=== PATIENT | female | born 1955 | race Caucasian/White ===

== ENCOUNTER 2017-08-19 22:46 | Emergency (ER) | payer MEDICARE, MEDICAID ==
--- NOTE | 2017-08-19 23:07 | ER Document Report ---
ED General - General Chief Complaint: Chest Pain > 30 Stated Complaint: CHEST,ABDOMINAL PAIN Time Seen by Provider: 08/19/17 23:05 Notes: Patient is a 62-year-old female presents with complaint of upper abdominal pain and burning. Said rates to her back. She then has some pain goes into her chest. She has had this pain many times in the past. She has had for HIDA scans which have all been negative. She does admit to drinking several shots of alcohol yesterday. Pain is been there for 1-2 days. No vomiting. Some nausea. She says she seemed a small amount of blood in her stool which is not abnormal for her. No history of coronary disease. She is a former smoker but quit 14 years ago. She has a history of appendectomy. She has had endoscopies in the past which just show hiatal hernia. Her says that she said this happened to her many times in the past. The patient says that this is however different and that it is worse; however, she then says that Valium helps this pain typically. TRAVEL OUTSIDE OF THE [place] IN LAST 30 DAYS: No - Related Data Allergies/Adverse Reactions: aspirin [Aspirin] Allergy (Verified 02/25/14 11:53) epinephrine [Epinephrine] Allergy (Verified 02/25/14 11:53) ibuprofen [Ibuprofen] Allergy (Verified 02/25/14 11:53) Past Medical History - Social History Smoking Status: Former Smoker Frequency of alcohol use: Occasional Drug Abuse: None Family History: Reviewed & Not Pertinent Pulmonary Medical History: Reports: Hx Asthma Endocrine Medical History: Reports: Hx Diabetes Mellitus Type 2 Malignancy Medical History: Reports: Hx Breast Cancer GI Medical History: Reports: Hx Gastroesophageal Reflux Disease Musculoskeltal Medical History: Reports Hx Arthritis Past Surgical History: Reports: Hx Abdominal Surgery - colonectomy, Hx Appendectomy, Hx Mastectomy - patrial, Hx Orthopedic Surgery - R knee; R tib; R wrist; jaw - Immunizations Hx Diphtheria, Pertussis, Tetanus Vaccination: Yes Review of Systems - Review of Systems Notes: My Normal Review Basic REVIEW OF SYSTEMS: CONSTITUTIONAL : Denies fever, chills, or sweats. Denies recent illness. EENT: Denies eye, ear, throat, or mouth pain or symptoms. Denies nasal or sinus congestion. CARDIOVASCULAR: Lower chest pressure. RESPIRATORY: Denies cough, cold, or chest congestion. Denies shortness of breath, difficulty breathing, or wheezing. GASTROINTESTINAL: Abdominal pain. Some nausea. No vomiting. GENITOURINARY: Denies difficulty urinating, painful urination, burning, frequency, or blood in urine. MUSCULOSKELETAL: Some pain radiating to back from abdomen. SKIN: Denies rash or skin lesions. NEUROLOGICAL: Denies altered mental status or loss of consciousness. Denies headache. Denies weakness or paralysis or loss of use of either side. Denies problems with gait or speech. Denies sensory or motor loss. ALL OTHER SYSTEMS REVIEWED AND NEGATIVE. Physical Exam - Vital signs Vitals: Temp Pulse Resp BP Pulse Ox 97.5 F 90 20 143/53 H 94 08/19/17 22:54 08/19/17 22:54 08/19/17 22:54 08/19/17 22:54 08/19/17 22:54 - Notes Notes: General Appearance: Well nourished, alert, cooperative, no acute distress, or obvious discomfort. Patient is very anxious on exam. Vitals: reviewed, See vital signs table. Head: no swelling or tenderness to the head Eyes: PERRL, EOMI, Conjuctiva clear Mouth: No decreasd moisture Lungs: No wheezing, No rales, No rhonci, No accessory muscle use, good air exchange bilaterally. Heart: Normal rate, Regular rythm, No murmur, no rub Abdomen: Normal BS, soft, No rigidity, moderate upper abdominal tenderness to palpation. Lower abdomen is completely nontender., No guarding, no rebound, no abdominal masses, no organomegaly Extremities: strength 5/5 in all extremities, good pulses in all extremities, no swelling or tenderness in the extremities, no edema. Skin: warm, dry, appropriate color, no rash Neuro: speech clear, oriented x 3, normal affect, responds appropriately to questions. Course - Re-evaluation Re-evalutation: 08/19/17 23:30 Patient initially said the Valium helps this pain when she has it. I therefore ordered Valium. Patient now requests to be able take her on p.o. Valium from home that she brought with her. I will cancel the IV Valium and let her take her oral Valium. 08/20/17 02:03 Patient is now resting comfortably. She looks well. Will let her continue to rest and reassess her later. I did talk to the again. He does again state that this pain has happened many times in the past. He says it is always in the same location and radiates to her back. She has a history of chronic back issues as well that which he feels also plays a role. She has had multiple HIDA scans however has been still concerned that maybe her gallbladder does play a role even though all her gallbladder workup and multiple gallbladder workups have been negative. Laboratory evaluation in regards to her liver enzymes and white blood cell count are normal. 08/20/17 05:22 Patient continues to feel much improved. She will be discharged home. I do not know the exact cause of her current pain. Seems to be a combination of some chronic abdominal back pain in conjunction with stress and anxiety. says she has been like this many times in the past. It sounds like she has had very extensive workups including HIDA scans and testing of her gallbladder which have all come back negative. She is completely pain-free at this time. Her laboratory evaluation is unremarkable. I do not suspect coronary disease. Her pain is very reproducible to palpation in her abdomen. EKG and cardiac enzymes are negative. I do not suspect aortic dissection and that she has had this type of pain several times in the past with negative workups, she has no hyper tension, she is not tachycardic, pulses are equal in all 4 extremities, and her pain is completely resolved. her abdomen is now pain- free to palpation. Her laboratory evaluation is unremarkable. I feel she is safe to be discharged home. I informed her and her that she is to follow-up with her doctor this week for reevaluation. I encouraged him return to ER if she has recurrent pain, fevers, vomiting, chest pain, or she feels unwell. Patient and agree with plan and she will be discharged home. Dictation of this chart was performed using voice recognition software; therefore, there may be some unintended grammatical errors. 08/20/17 05:27 08/20/17 05:27 - Vital Signs Vital signs: Temp Pulse Resp BP Pulse Ox 97.5 F 90 28 H 120/61 97 08/19/17 22:54 08/19/17 22:54 08/20/17 03:01 08/20/17 03:01 08/20/17 03:01 - Laboratory Result Diagrams: 08/19/17 23:45 08/19/17 23:45 Laboratory results interpreted by me: 08/19/17 08/19/17 23:45 23:45 RDW 14.3 H Carbon Dioxide 31 H Glucose 140 H - EKG Interpretation by Me Additional EKG results interpreted by me: 08/19/17 23:05 EKG is reviewed and interpreted by me. EKG shows normal sinus rhythm with a rate of [address] segment elevation or depression that is new in comparison to her previous EKG from summer. Patient does have a right bundle branch block that she is consistent with his old EKG. Discharge - Discharge Clinical Impression: Abdominal pain Qualifiers: Abdominal location: upper abdomen, unspecified Qualified Code(s): R10.10 - Upper abdominal pain, unspecified Back pain Qualifiers: Back pain location: thoracic back pain Chronicity: chronic Back pain laterality : right Qualified Code(s): M54.6 - Pain in thoracic spine Condition: Good Disposition: HOME, SELF-CARE Additional Instructions: Please follow up with your doctor this week for reevaluation. please return to the ER if you have worsening, recurrent pain, fevers, vomiting, or feel unwell. Please avoid spicy foods, fatty foods and fried foods. Please avoid alcohol. Please avoid heavy lifting. Forms: Return to Work Referrals: JUANCARLOS SMITH MD [Primary Care Provider] - 08/21/17
[2017-08-19] MEDS ORDERED: DIAZEPAM INJ 10 MG/2 ML DISP.SYRIN IV ONE (23:14)
[2017-08-19 23:57] LABS: ABSOLUTE BASOPHILS # (AUTO) 0.1 10^3/uL (0.0-0.2); ABSOLUTE EOSINOPHILS # (AUTO) 0.2 10^3/uL (0.0-0.6); ABSOLUTE LYMPHOCYTES (AUTO) 2.1 10^3/uL (0.5-4.7); ABSOLUTE MONOCYTES (AUTO) 0.5 10^3/uL (0.1-1.4); ABSOLUTE NEUT (AUTO) 3.6 10^3/uL (1.7-8.2); BASOPHILS % (AUTO) 0.9 % (0-2); EOSINOPHILS % (AUTO) 3.1 % (0-6); HEMATOCRIT 43.8 % (36.0-47.0); HEMOGLOBIN 14.7 g/dL (12.0-15.5); LYMPHOCYTES % (AUTO) 32.9 % (13-45); MEAN CORPUSCULAR HEMOGLOBIN 31.3 pg (27.0-33.4); MEAN CORPUSCULAR HGB CONC 33.6 g/dL (32.0-36.0); MEAN CORPUSCULAR VOLUME 93 fl (80-97); MONOCYTES % (AUTO) 7.9 % (3-13); PLATELET COUNT 178 10^3/uL (150-450); RED BLOOD COUNT 4.71 10^6/uL (3.72-5.28); RED CELL DISTRIBUTION WIDTH 14.3 % (11.5-14.0); SEGMENTED NEUTROPHILS % (AUTO) 55.2 % (42-78); TOTAL CELLS COUNTED % (AUTO) 100 %; WHITE BLOOD COUNT 6.4 10^3/uL (4.0-10.5)
--- NOTE | 2017-08-20 00:01 | RADIOLOGY REPORT (SQ) ---
EXAM DESCRIPTION: CHEST SINGLE VIEW COMPLETED DATE/TIME: 08/19/2017 11:27 pm REASON FOR STUDY: chest pain, upper abdominal pain COMPARISON: 07/25/2012 EXAM PARAMETERS: NUMBER OF VIEWS: One view. TECHNIQUE: Single frontal radiographic view of the chest acquired. RADIATION DOSE: NA LIMITATIONS: None. FINDINGS: LUNGS AND PLEURA: No acute opacities, masses or pneumothorax. No pleural effusion. MEDIASTINUM AND HILAR STRUCTURES: Stable. HEART AND VASCULAR STRUCTURES: Heart normal in size. Normal vasculature. BONES: No acute findings. HARDWARE: None in the chest. OTHER: No other significant finding. IMPRESSION: NO ACUTE RADIOGRAPHIC FINDING IN THE CHEST. TECHNICAL DOCUMENTATION: JOB ID: [id number] [place]-72 2010 [employer]- All Rights Reserved
[2017-08-20 00:17] LABS: ALANINE AMINOTRANSFERASE 34 U/L (9-52); ALBUMIN 3.7 g/dL (3.5-5.0); ALKALINE PHOSPHATASE 102 U/L (38-126); ANION GAP 9 (5-19); ASPARTATE AMINO TRANSFERASE 19 U/L (14-36); BILIRUBIN,DIRECT 0.2 mg/dL (0.0-0.4); BILIRUBIN,TOTAL 0.4 mg/dL (0.2-1.3); BLOOD UREA NITROGEN 17 mg/dL (7-20); CALCIUM 9.2 mg/dL (8.4-10.2); CARBON DIOXIDE 31 mmol/L (22-30); CHLORIDE 102 mmol/L (98-107); GLUCOSE 140 mg/dL (75-110); LIPASE 102.8 U/L (23-300); POTASSIUM 4.2 mmol/L (3.6-5.0); SODIUM 142.1 mmol/L (137-145); TOTAL PROTEIN 6.8 g/dL (6.3-8.2)
[2017-08-20] MEDS ORDERED: METOCLOPRAMIDE HCL ORAL SOLN 10 MG/10 ML UDCUP PO ONE (00:39)
[2017-08-20] MEDS ORDERED: LIDOCAINE 2% VISCOUS SOLN 20 ML UDCUP PO ONE (00:39)
[2017-08-20] MEDS ORDERED: MAG HYDROX/AL HYDROX/SIMETH SUSP 30 ML UDCUP PO ONE (00:39)
[2017-08-20] MEDS ORDERED: HYDROMORPHONE HCL INJ/PF 2 MG/ML AMPULE IV ONE (00:50)
[2017-08-20] MEDS ORDERED: LORAZEPAM INJ 2 MG/1 ML VIAL IV ONE (00:50)
[2017-08-20 03:16] VITALS: BP 120/61
--- NOTE | 2017-08-21 08:00 | EKG REPORT ---
SEVERITY:- ABNORMAL ECG - SINUS RHYTHM BIATRIAL ABNORMALITIES RIGHT BUNDLE BRANCH BLOCK : Confirmed by: Shelley Barnes MD 21-Aug-2017 07:58:43
== END 2017-08-20 04:03 | disposition home or self-care (01) ==
LOC: ER 22:46
DX: M54.6 Pain in thoracic spine (principal); R10.10 Upper abdominal pain, unspecified; R07.9 Chest pain, unspecified; R11.0 Nausea; Z87.891 Personal history of nicotine dependence; Z79.899 Other long term (current) drug therapy
CPT/HCPCS: 93005; 99284; 96374; 96375; 36415; 83690; 85025; 80053; 84484; 71010; 93010; J3490; A9270; J1170; J2060

== ENCOUNTER 2018-10-28 17:27 | Observation (INO) | payer MEDICAID, MEDICARE, OTHER ==
[~2018-10-28 17:27] MED LIST: REGADENOSON INJ 0.4 MG/5 ML DISP.SYRIN IV ONE
--- NOTE | 2018-10-28 19:18 | EKG REPORT ---
SEVERITY:- ABNORMAL ECG - SINUS RHYTHM LEFT ATRIAL ABNORMALITY RIGHT BUNDLE BRANCH BLOCK : Confirmed by: Shelley Barnes MD 28-Oct-2018 19:16:33
--- NOTE | 2018-10-28 19:23 | ER Document Report ---
ED Medical Screen (RME) - General Chief Complaint: Chest Pain Stated Complaint: CHEST PAIN Time Seen by Provider: 10/28/18 19:15 Primary Care Provider: JUANCARLOS SMITH MD [Primary Care Provider] - Follow up as needed Notes: 63-year-old female patient emergency department chief complaint of chest pain. Chest pain began suddenly on Friday. Seems to be worse with movement and eating. States that she has not had anything to eat since Friday other than some yogurt. Continues to have pain in the chest mostly in the epigastric and right side of the chest. Some mild shortness of breath. I have greeted and performed a rapid initial assessment of this patient. A comprehensive ED assessment and evaluation of the patient, analysis of test results and completion of the medical decision making process will be conducted by additional ED providers. TRAVEL OUTSIDE OF THE [place] IN LAST 30 DAYS: No - Related Data Allergies/Adverse Reactions: aspirin [Aspirin] Allergy (Verified 10/28/18 17:30) epinephrine [Epinephrine] Allergy (Verified 10/28/18 17:30) ibuprofen [Ibuprofen] Allergy (Verified 10/28/18 17:30) Past Medical History Pulmonary Medical History: Reports: Hx Asthma Endocrine Medical History: Reports: Hx Diabetes Mellitus Type 2 Renal/ Medical History: Denies: Hx Peritoneal Dialysis Malignancy Medical History: Reports: Hx Breast Cancer GI Medical History: Reports: Hx Gastroesophageal Reflux Disease Musculoskeltal Medical History: Reports Hx Arthritis Past Surgical History: Reports: Hx Abdominal Surgery - colonectomy, Hx Append ectomy, Hx Mastectomy - patrial, Hx Orthopedic Surgery - R knee; R tib; R wrist; jaw - Immunizations Hx Diphtheria, Pertussis, Tetanus Vaccination: Yes Physical Exam - Vital signs Vitals: Temp Pulse Resp BP Pulse Ox 98.0 F 78 20 167/61 H 95 10/28/18 17:49 10/28/18 17:49 10/28/18 17:49 10/28/18 17:49 10/28/18 17:49 - Notes Notes: Physical exam: Heart with significant systolic murmur 4/6. Lungs reveal crackles bilaterally Course - Vital Signs Vital signs: Temp Pulse Resp BP Pulse Ox 98.0 F 78 20 167/61 H 95 10/28/18 17:49 10/28/18 17:49 10/28/18 17:49 10/28/18 17:49 10/28/18 17:49 - EKG Interpretation by Me EKG shows normal: Sinus rhythm, [place], QRS Complexes, ST-T Waves [place]/QRS: RBBB Doctor's Discharge - Discharge Referrals: JUANCARLOS SMITH MD [Primary Care Provider] - Follow up as needed
--- NOTE | 2018-10-28 20:27 | RADIOLOGY REPORT (SQ) ---
EXAM DESCRIPTION: XR CHEST 2 VIEWS COMPLETED DATE/TME: 10/28/2018 19:21 CLINICAL HISTORY: 63 years, Female, cp COMPARISON: EXAM DESCRIPTION: CLINICAL HISTORY: cp COMPARISON: None. FINDINGS: Two views of the chest are submitted. There is mild bilateral pulmonary edema. Cardiac silhouette appears normal. No focal parenchymal or pleural disease. No acute bony abnormality. There is mild pulmonary vascular engorgement. IMPRESSION: Mild pulmonary edema.
[2018-10-28 21:09] LABS: ABSOLUTE EOSINOPHILS # (AUTO) 0.1 10^3/uL (0.0-0.6); ABSOLUTE LYMPHOCYTES (AUTO) 2.3 10^3/uL (0.5-4.7); ABSOLUTE MONOCYTES (AUTO) 0.6 10^3/uL (0.1-1.4); ABSOLUTE NEUT (AUTO) 3.1 10^3/uL (1.7-8.2); BASOPHILS % (AUTO) 0.8 % (0-2); EOSINOPHILS % (AUTO) 2.4 % (0-6); HEMATOCRIT 44.2 % (36.0-47.0); HEMOGLOBIN 15.2 g/dL (12.0-15.5); MEAN CORPUSCULAR HEMOGLOBIN 32.1 pg (27.0-33.4); MEAN CORPUSCULAR HGB CONC 34.5 g/dL (32.0-36.0); MEAN CORPUSCULAR VOLUME 93 fl (80-97); MONOCYTES % (AUTO) 9.1 % (3-13); PLATELET COUNT 173 10^3/uL (150-450); RED BLOOD COUNT 4.75 10^6/uL (3.72-5.28); RED CELL DISTRIBUTION WIDTH 14.5 % (11.5-14.0); SEGMENTED NEUTROPHILS % (AUTO) 50.7 % (42-78); TOTAL CELLS COUNTED % (AUTO) 100 %; WHITE BLOOD COUNT 6.1 10^3/uL (4.0-10.5)
[2018-10-28 21:32] LABS: ALANINE AMINOTRANSFERASE 37 U/L (9-52); ALBUMIN 4.1 g/dL (3.5-5.0); ALKALINE PHOSPHATASE 85 U/L (38-126); ANION GAP 9 (5-19); ASPARTATE AMINO TRANSFERASE 31 U/L (14-36); BILIRUBIN,DIRECT 0.2 mg/dL (0.0-0.4); BILIRUBIN,TOTAL 1.1 mg/dL (0.2-1.3); BLOOD UREA NITROGEN 14 mg/dL (7-20); CALCIUM 9.8 mg/dL (8.4-10.2); CARBON DIOXIDE 28 mmol/L (22-30); CHLORIDE 103 mmol/L (98-107); CREATINE KINASE 70 U/L (30-135); GLUCOSE 90 mg/dL (75-110); LIPASE 63.1 U/L (23-300); POTASSIUM 4.3 mmol/L (3.6-5.0); TOTAL PROTEIN 6.7 g/dL (6.3-8.2)
--- NOTE | 2018-10-28 21:35 | ER Document Report ---
ED Cardiac - General Chief Complaint: Chest Pain Stated Complaint: CHEST PAIN Time Seen by Provider: 10/28/18 21:35 Mode of Arrival: Ambulatory Information source: Patient Notes: HISTORY OF PRESENT ILLNESS: Patient is a 63-year-old female with a past medical history of hypertension, diabetes, and smoking who presents with intermittent chest pain for the past 3 weeks that have been getting worse for the past 4 days. Location: Middle of the chest Onset: Vaginal Alleviation: None Provocation: Movement, lying flat Quality: Burning Radiation: None Severity: Moderate Timing: Intermittent History of CAD: None Associated symptoms: Fevers or chills, no shortness of breath, no swelling of the extremities REVIEW OF SYSTEMS: CONSTITUTIONAL : Denies fever or chills, no sweats. Denies recent illness. EENT: Denies eye, ear, throat, or mouth pain or symptoms. Denies nasal or sinus congestion. CARDIOVASCULAR: Positive for chest pain. Denies swelling of the legs. RESPIRATORY: Denies cough, cold, or chest congestion. Denies shortness of breath or difficulty breathing. Denies wheezing. GASTROINTESTINAL: Denies abdominal pain. Denies nausea, vomiting, or diarrhea. Denies constipation. GENITOURINARY: Denies difficulty urinating, painful urination, burning, frequency, or blood in urine. FEMALE GENITOURINARY: Denies vaginal bleeding, abnormal or irregular periods. MUSCULOSKELETAL: Denies neck or back pain or joint pain or swelling. SKIN: Denies rash or skin lesions. HEMATOLOGIC : Denies easy bruising or bleeding. LYMPHATIC: Denies swollen, enlarged glands. NEUROLOGICAL: Denies altered mental status or loss of consciousness. Denies headache. Denies weakness or paralysis or loss of use of either side. Denies problems with gait or speech. Denies sensory or motor loss. PSYCHIATRIC: Denies anxiety or stress or depression. All other systems reviewed and negative. PHYSICAL EXAMINATION: GENERAL: Well-appearing, well-nourished and in no acute distress. HEAD: Atraumatic, normocephalic. No scalp deformity, depression, or crepitance. EYES: Pupils are 3 mm and equal/round/reactive to light, extraocular movements intact, sclera anicteric, conjunctiva are normal. ENT: Nares patent bilaterally, oropharynx. Moist mucous membranes. No tonsil hypertrophy. NECK: Normal range of motion, supple without lymphadenopathy. LUNGS: Breath sounds present, equal, and clear to auscultation bilaterally. No wheezes, rales, or rhonchi. HEART: Regular rate and rhythm without murmurs, rubs, or gallops. 2+ peripheral pulses. Normal capillary refill. ABDOMEN: Soft, nontender, nondistended. Normoactive bowel sounds. No guarding, no rebound. No masses appreciated. BACK: Normal contour, no midline tenderness. Rectal exam deferred. GENITAL/PELVIC: Deferred. EXTREMITIES: Normal range of motion, no pitting or edema. No cyanosis. NEUROLOGICAL: No focal neurological deficits. Moves all extremities spontaneously and on command. PSYCH: Normal mood, normal affect. No suicidal thoughts/ideations. No homocidal thoughts/ideations. No hallucinations. SKIN: Warm, dry, normal turgor, no rashes or lesions noted. ASSESSMENT AND PLAN: This patient is a 63-year-old female who presents with chest pain that could be GERD, however given risk factors, acute LA versus unstable angina is also possibility. 1. Will obtain labs and admit for chest pain rule out. 2. Will withhold aspirin given the patient's allergy. TRAVEL OUTSIDE OF THE [place] IN LAST 30 DAYS: No - Related Data Allergies/Adverse Reactions: aspirin [Aspirin] Allergy (Verified 10/28/18 17:30) epinephrine [Epinephrine] Allergy (Verified 10/28/18 17:30) ibuprofen [Ibuprofen] Allergy (Verified 10/28/18 17:30) Penicillins Allergy (Verified 10/28/18 21:39) Past Medical History - General Information source: Patient - Social History Smoking Status: Former Smoker Chew tobacco use (# tins/day): No Frequency of alcohol use: None Drug Abuse: None Lives with: Family Family History: Reviewed & Not Pertinent Patient has suicidal ideation: No Patient has homicidal ideation: No - Past Medical History Cardiac Medical History: Reports: Hx Hypertension Pulmonary Medical History: Reports: Hx Asthma EENT Medical History: Reports: None Neurological Medical History: Reports: None Endocrine Medical History: Reports: Hx Diabetes Mellitus Type 2 Renal/ Medical History: Reports: None. Denies: Hx Peritoneal Dialysis Malignancy Medical History: Reports: Hx Breast Cancer GI Medical History: Reports: Hx Gastroesophageal Reflux Disease Musculoskeletal Medical History: Reports Hx Arthritis Skin Medical History: Reports None Psychiatric Medical History: Reports: None Traumatic Medical History: Reports: None Infectious Medical History: Reports: None Past Surgical History: Reports: Hx Abdominal Surgery - colonectomy, Hx Appendectomy, Hx Mastectomy - patrial, Hx Orthopedic Surgery - R knee; R tib; R wrist; jaw - Immunizations Hx Diphtheria, Pertussis, Tetanus Vaccination: Yes Physical Exam - Vital signs Vitals: Temp Pulse Resp BP Pulse Ox 98.0 F 78 20 167/61 H 95 10/28/18 17:49 10/28/18 17:49 10/28/18 17:49 10/28/18 17:49 10/28/18 17:49 Course - Re-evaluation Re-evalutation: 10/28/18 23:10 Patient is admitted to the hospitalist. - Vital Signs Vital signs: Temp Pulse Resp BP Pulse Ox 97.8 F 75 16 144/54 H 93 10/29/18 01:50 10/29/18 01:50 10/29/18 01:50 10/29/18 01:50 10/29/18 01:50 - Laboratory Result Diagrams: 10/28/18 20:55 10/28/18 20:55 Laboratory results interpreted by me: 10/28/18 20:55 RDW 14.5 H - Diagnostic Test Radiology reviewed: Image reviewed, Reports reviewed - EKG Interpretation by Sc EKG shows normal: Sinus rhythm Rate: Normal Rhythm: NSR [place]/QRS: RBBB Voltage: No: Increased voltage, Consistant with LVH, Decreased voltage, Through out, Limb leads P Waves: No: IRENE, LAE, Absent, AV Dissociation, Other Heart block present: No: 1st Degree, Mobitz 1, Mobitz 2, CHB (3rd degree block) When compared to previous EKG there are: No significant change - Consults Dr. Sierra Time consulted: 23:10 - will admit Consulted provider: will come to ER Discharge - Discharge Clinical Impression: Elevated troponin I measurement Chest pain Qualifiers: Chest pain type: unspecified Qualified Code(s): R07.9 - Chest pain, unspecified Condition: Stable Disposition: ADMITTED INPATIENT Admitting Provider: Hospitalist Unit Admitted: Telemetry
[2018-10-28 21:40] LABS: CREATINE KINASE MB 1.58 ng/mL (<4.55)
[2018-10-28 21:44] LABS: TROPONIN I 0.059 ng/mL
[2018-10-28] MEDS ORDERED: MAG HYDROX/AL HYDROX/SIMETH SUSP 30 ML UDCUP PO ONE (22:37)
[2018-10-28] MEDS ORDERED: METOCLOPRAMIDE HCL ORAL SOLN 10 MG/10 ML UDCUP PO ONE (22:38)
[2018-10-28] MEDS ORDERED: LIDOCAINE 2% VISCOUS SOLN 20 ML UDCUP PO ONE (22:38)
[2018-10-28] MEDS ORDERED: ONDANSETRON HCL INJ/PF 4 MG/2 ML SDV IV PRN (23:24)
[2018-10-28] MEDS ORDERED: TEMAZEPAM 15 MG CAPSULE PO PRN (23:24)
[2018-10-28] MEDS ORDERED: MAGNESIUM HYDROXIDE SUSP 30 ML UDCUP PO PRN (23:24)
[2018-10-28] MEDS ORDERED: MAG HYDROX/AL HYDROX/SIMETH SUSP 30 ML UDCUP PO PRN (23:24)
[2018-10-28] MEDS ORDERED: ONDANSETRON 4 MG TAB.RAPDIS PO PRN (23:24)
[2018-10-28] MEDS ORDERED: HYDRALAZINE HCL INJ/PF 20 MG/1 ML SDV IV PRN (23:29)
[2018-10-28] MEDS ORDERED: NITROGLYCERIN 0.4 MG/TAB 25 TAB/BOTTLE SL PRN (23:29)
[2018-10-28] MEDS ORDERED: ACETAMINOPHEN 325 MG TABLET PO PRN (23:29)
[2018-10-28] MEDS ORDERED: MORPHINE SULFATE 10 MG/ML INJ IV PRN (23:29)
[2018-10-28] MEDS ORDERED: DIAZEPAM 5 MG TABLET PO ONE (23:51)
[2018-10-29 00:28] LABS: FREE T3 3.55 pg/mL (2.77-5.27); FREE T4 (FREE THYROXINE) 1.2 ng/dL (0.78-2.19)
[2018-10-29 03:11] LABS: HEMATOCRIT 43.8 % (36.0-47.0); MEAN CORPUSCULAR HEMOGLOBIN 31.6 pg (27.0-33.4); MEAN CORPUSCULAR HGB CONC 34.2 g/dL (32.0-36.0); MEAN CORPUSCULAR VOLUME 92 fl (80-97); PLATELET COUNT 141 10^3/uL (150-450); RED BLOOD COUNT 4.75 10^6/uL (3.72-5.28); RED CELL DISTRIBUTION WIDTH 14.1 % (11.5-14.0); WHITE BLOOD COUNT 5.4 10^3/uL (4.0-10.5)
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
[2018-10-29 04:45] LABS: ANION GAP 7 (5-19); BLOOD UREA NITROGEN 14 mg/dL (7-20); CALCIUM 9.6 mg/dL (8.4-10.2); CARBON DIOXIDE 27 mmol/L (22-30); CHLORIDE 108 mmol/L (98-107); CHOLESTEROL 146.74 mg/dL (0-200); CREATINE KINASE 59 U/L (30-135); GLUCOSE 97 mg/dL (75-110); POTASSIUM 4.1 mmol/L (3.6-5.0); SODIUM 141.9 mmol/L (137-145); TRIGLYCERIDES 91 mg/dL (<150)
[2018-10-29 04:53] LABS: CREATINE KINASE MB 1.4 ng/mL (<4.55); TROPONIN I 0.048 ng/mL
[2018-10-29 05:02] LABS: DIRECT LDL 70 mg/dL (<100)
[2018-10-29] MEDS ORDERED: LANSOPRAZOLE 30 MG TAB.RAP.DR PO SCH (06:00)
[2018-10-29] MEDS: HEPARIN SOD (PORCINE) 5,000 UNIT/ML 1 ML SYRINGE SUBCUT SCH ×3 (06:01→21:53)
[2018-10-29] MEDS ORDERED: SUCRALFATE SUSP 1 GM/10 ML UDCUP PO SCH (08:00)
[2018-10-29 08:06] LABS: CREATINE KINASE MB 1.27 ng/mL (<4.55); TROPONIN I 0.032 ng/mL
[2018-10-29] MEDS ORDERED: DOCUSATE SODIUM 100 MG CAPSULE PO SCH (10:00)
[2018-10-29] MEDS: METOCLOPRAMIDE HCL 10 MG TABLET PO SCH ×4 (11:00→21:48)
[2018-10-29] MEDS: SUCRALFATE 1 GM TABLET PO SCH ×3 (11:04→21:48)
[2018-10-29] MEDS: PANTOPRAZOLE SODIUM 40 MG VIAL IV SCH ×2 (12:38→21:48)
--- NOTE | 2018-10-29 12:39 | EKG REPORT ---
SEVERITY:- ABNORMAL ECG - SINUS RHYTHM PROBABLE LEFT ATRIAL ABNORMALITY RIGHT BUNDLE BRANCH BLOCK : Confirmed by: Shelley Barnes MD 29-Oct-2018 12:39:00
--- NOTE | 2018-10-29 12:53 | DRAGON STRESS TEST REPORT ---
Intravenous Lexiscan Cardiolite stress test using single photon emmision computerized tomography. Date of procedure: 10/29/2017. Ordering Provider: Dr. Reed. Patient's status: In Patient. Indication: Chest/epigastric pain. Coronary risk factors: Age, diabetes mellitus, hypertension, tobacco abuse disorder, and family history of CAD. Resting EKG: Sinus Rhythm. Right Bundle Branch Block pattern. Stress EKG: No changes of ischemia. Prior to the stress testing, the patient had epigastric pain which was reproducible. Her EKGs did not show any acute changes. This subsided spontaneously, and with the IV Lexiscan the patient had no chest pain or discomfort. There was shortness of breath, relieved with drinking Pepsi. There is no wheezing heard when the patient has shortness of breath. There were no arrhythmias seen. Reason for termination: Protocol. Conclusions: Normal EKG and hemodynamic response to IV Lexiscan. Nuclear data: At rest the patient was given 14.07 millicuries of technetium 99m sestamibi injected intravenously. As per protocol rest non gated SPECT images were obtained. Subsequently the patient was given intravenous Lexiscan at a dose of 0.4 mg in 5 mL intravenously, followed by flush with normal saline. Subsequently the stress dose of 44.7 millicuries of technetium 99m sestamibi was injected intravenously. As per protocol stress gated images were obtained. Nuclear interpretation: Review of images showed that all segments of the myocardium had normal perfusion at rest, and normal perfusion post stress with IV Lexiscan. All segments of the myocardium had normal motion, contraction, and thickening by gated study. T. I D. ratio was normal at 1.08. There is no transient ischemic dilatation of the left ventricle. Computer read rest, and stress left ventricular ejection fraction were 55 %, and 50 %, respectively. Visually both the stress and rest ejection fractions were normal, and greater than 55%. Conclusion: 1. There is no scintigraphic evidence of Lexiscan induced myocardial ischemia. 2. There is no scintigraphic evidence of myocardial infarction/scar. Recommendations: Aggressive risk factor modification, and treating the underlying co- morbidities. MTDD
--- NOTE | 2018-10-29 14:17 | RADIOLOGY REPORT (SQ) ---
EXAM DESCRIPTION: CT ABD/PELVIS WITH IV ONLY COMPLETED DATE/TIME: 10/29/2018 12:04 pm REASON FOR STUDY: eval for cholecystitis R10.10 UPPER ABDOMINAL PAIN, UNSPECIFIED COMPARISON: None. TECHNIQUE: CT scan of the abdomen and pelvis performed using helical scanning technique with dynamic intravenous contrast injection. No oral contrast. Images reviewed with lung, soft tissue, and bone windows. Reconstructed coronal and sagittal MPR images reviewed. Delayed images for evaluation of the urinary system also acquired. All images stored on PACS. All CT scanners at this facility use dose modulation, iterative reconstruction, and/or weight based d osing when appropriate to reduce radiation dose to as low as reasonably achievable (ALARA). [facility]: Dose Right [facility]: CareDose [facility]: Dose Right [facility]: Teradose 4D [facility]: [employer] CONTRAST TYPE AND DOSE: contrast/concentration: Isovue 350.00 mg/ml; Total Contrast Delivered: 100.0 ml; Total Saline Delivered: 72.0 ml 100 cc Omnipaque 350- low osmolar. RENAL FUNCTION: GFR > 60. RADIATION DOSE: CT Rad equipment meets quality standard of care and radiation dose reduction techniq ues were employed. CTDIvol: 21.2 - 21.7 mGy. DLP: 2084 mGy-cm.. LIMITATIONS: None. FINDINGS: LOWER CHEST: Minimal bibasilar atelectasis or infiltrate. LIVER: Normal size. No masses. No dilated ducts. SPLEEN: Normal size. No focal lesions. PANCREAS: No masses. No significant calcifications. No adjacent inflammation or peripancreatic fluid collections. Pancreatic duct not dilated. GALLBLADDER: No identified stones by CT criteria. No inflammatory changes to suggest cholecystitis. ADRENAL GLANDS: No significant masses or asymmetry. RIGHT KIDNEY AND URETER: No solid masses. No significant calcifications. No hydronephrosis or hyd roureter. Parapelvic cysts LEFT KIDNEY AND URETER: No solid masses. No significant calcifications. No hydronephrosis or hydr oureter. Parapelvic cysts AORTA AND VESSELS: No aneurysm. No dissection. Renal arteries, SMA, celiac without stenosis. RETROPERITONEUM: No retroperitoneal adenopathy, hemorrhage or masses. BOWEL AND PERITONEAL CAVITY: No masses or inflammatory changes. No free fluid or peritoneal masses. Mild to moderate sigmoid diverticulosis APPENDIX: Not visualized. PELVIS: No mass. No free fluid. Normal bladder. ABDOMINAL WALL: No masses. No hernias. BONES: No significant or acute findings. OTHER: No other significant finding. IMPRESSION: No acute findings. . Mild to moderate sigmoid diverticulosis. Parapelvic cysts. TECHNICAL DOCUMENTATION: JOB ID: [id number] Quality ID # [id number]: Final reports with documentation of one or more dose reduction techniques (e.g., Au tomated exposure control, adjustment of the mA and/or kV according to patient size, use of iterative reconstruction technique) 2010 [employer]- All Rights Reserved Reading location - IP/workstation name: [email or web address]
[2018-10-29] MEDS ORDERED: ALBUTEROL SULFATE HFA (90 MCG/PUFF) 200 PUFF/8.5 GM MDI IH PRN (21:20)
--- NOTE | 2018-10-29 21:49 | PDOC PROGRESS REPORT ---
Subjective Progress Note for:: 10/29/18 Subjective:: 63 y.o. F with a PMH COPD, partial colon resection presents to [facility] with epigastric/RUQ pain. Cardiac workup has been negative - EKG, cardiac enzymes and stress test. Upon assessment, the patient is resing comfortably in bed. She had just finished eating breakfast. She states her pain typically starts within an hour of eating. She also states she can't remain supine for too long otherwise she experiences a flare up of pain. Abdomen is S/ND. +TTP in the epigastric region. (+) bowel sounds. Denies N/V/D Symptom constellation is similar to that of acid reflux vs. gallstones. Initiate protonix iv for GERD and CT ABD/PELVIS to evaluate for cholecystitis. Reason For Visit: CHEST PAIN,EPIGASTRIC PAIN Physical Exam Vital Signs: Temp Pulse Resp BP Pulse Ox 97.8 F 76 16 132/48 H 97 10/29/18 07:43 10/29/18 19:00 10/29/18 07:43 10/29/18 07:43 10/29/18 07:43 Intake & Output 10/28/18 10/29/18 10/30/18 06:59 06:59 06:59 Weight 93.9 kg General appearance: PRESENT: obese Eye exam: PRESENT: conjunctiva pink, PERRLA Mouth exam: PRESENT: moist, tongue midline Neck exam: PRESENT: full ROM Respiratory exam: PRESENT: clear to auscultation craig, symmetrical, unlabored Cardiovascular exam: PRESENT: RRR Pulses: PRESENT: normal radial pulses, normal dorsalis pedis pul Vascular exam: PRESENT: normal capillary refill GI/Abdominal exam: PRESENT: normal bowel sounds, soft, tenderness - epigastric area. ABSENT: distended, firm Rectal exam: PRESENT: deferred Extremities exam: PRESENT: full ROM. ABSENT: pedal edema Musculoskeletal exam: PRESENT: ambulatory, full ROM Neurological exam: PRESENT: alert, awake, oriented to person, oriented to place, oriented to time, oriented to situation Psychiatric exam: PRESENT: appropriate affect Skin exam: PRESENT: dry, intact, normal color Results Laboratory Results: 10/29/18 03:04 10/29/18 03:04 10/28/18 10/28/18 10/29/18 20:55 20:55 03:04 WBC RBC Hgb Hct MCV MCH MCHC RDW Plt Count Sodium 140.0 141.9 Potassium 4.3 4.1 Chloride 103 108 H Carbon Dioxide 28 27 Anion Gap 9 7 BUN 14 14 Creatinine 0.63 0.75 Est GFR ( Amer) > 60 > 60 Est GFR (Non-Af Amer) > 60 > 60 Glucose 90 97 Calcium 9.8 9.6 Magnesium 1.6 Total Bilirubin 1.1 AST 31 ALT 37 Alkaline Phosphatase 85 Total Protein 6.7 Albumin 4.1 Triglycerides 91 Cholesterol 146.74 LDL Cholesterol Direct 70 VLDL Cholesterol 18.0 HDL Cholesterol 59 Lipase 63.1 TSH Free T4 1.20 Free T3 pg/mL 3.55 10/29/18 10/29/18 03:04 03:04 WBC 5.4 RBC 4.75 Hgb 15.0 Hct 43.8 MCV 92 MCH 31.6 MCHC 34.2 RDW 14.1 H Plt Count 141 L Sodium Potassium Chloride Carbon Dioxide Anion Gap BUN Creatinine Est GFR ( Amer) Est GFR (Non-Af Amer) Glucose Calcium Magnesium Total Bilirubin AST ALT Alkaline Phosphatase Total Protein Albumin Triglycerides Cholesterol LDL Cholesterol Direct VLDL Cholesterol HDL Cholesterol Lipase TSH 11.20 H Free T4 Free T3 pg/mL 10/28/18 10/28/18 10/29/18 20:55 20:55 03:04 Creatine Kinase 70 CK-MB (CK-2) 1.58 1.40 Troponin I 0.059 0.048 10/29/18 10/29/18 10/29/18 03:04 07:09 07:09 Creatine Kinase 59 55 CK-MB (CK-2) 1.27 Troponin I 0.032 Impressions: Chest X-Ray 10/28/18 19:21 IMPRESSION: Mild pulmonary edema. Abdomen/Pelvis CT 10/29/18 09:10 IMPRESSION: No acute findings. . Mild to moderate sigmoid diverticulosis. Parapelvic cysts. Assessment & Plan - Diagnosis (1) Chest pain Qualifiers: Chest pain type: unspecified Qualified Code(s): R07.9 - Chest pain, unspecified Is this a current diagnosis for this admission?: Yes Plan: EKG shows NSR with RBBB Serial Troponins negative - no longer trending Cardiolite stress test negative Patient's pain is epigastric and seems to be post-prandial/positional. Given the negative cardiac workup, doubt it is cardiac related (2) Elevated troponin I measurement Is this a current diagnosis for this admission?: Yes Plan: plan as above (3) Epigastric pain Is this a current diagnosis for this admission?: Yes Plan: Patient has a hx of similar pain Previous EGD, HIDA scan and colonoscopy done - HIDA scan normal, unknown other results Initiated Protonix 40mg IV BID for GERD Continue Reglan, Maalox, Carafate Will likely need close follow up to outpatient GI (4) Morbid obesity with BMI of 40.0-44.9, adult Is this a current diagnosis for this admission?: Yes Plan: Weight management with diet control (5) Prediabetes Is this a current diagnosis for this admission?: Yes Plan: PMH prediabetes Managed with diet - Time Time Spent with patient: 15-24 minutes Medications reviewed and adjusted accordingly: Yes Anticipated discharge: Home - Inpatient Certification Based on my medical assessment, after consideration of the patient's comorbidities, presenting symptoms, or acuity I expect that the services needed warrant INPATIENT care.: Yes I certify that my determination is in accordance with my understanding of Medicare's requirements for reasonable and necessary INPATIENT services [42 CFR 412.3e].: Yes Medical Necessity: Need for Pain Control
[2018-10-30] MEDS: HEPARIN SOD (PORCINE) 5,000 UNIT/ML 1 ML SYRINGE SUBCUT SCH (05:41)
[2018-10-30] MEDS: SUCRALFATE 1 GM TABLET PO SCH ×2 (08:19→12:30)
[2018-10-30] MEDS: METOCLOPRAMIDE HCL 10 MG TABLET PO SCH ×2 (08:19→12:30)
[2018-10-30] MEDS ORDERED: (PENDING PHARMACY ID) (Tiotropium Bromide [Spiriva Respimat] 1 PUFF) IH SCH (10:00)
[2018-10-30] MEDS: PANTOPRAZOLE SODIUM 40 MG VIAL IV SCH (10:13)
[2018-10-30 12:43] VITALS: BP 136/57
== END 2018-10-30 13:42 | disposition home or self-care (01) ==
LOC: ER 17:27 → EH 23:42 → 5 10-29 01:40
PROVIDERS: ADMIT Emergency Medicine; ATTEND Emergency Medicine
DX: R79.89 Other specified abnormal findings of blood chemistry (principal); R10.13 Epigastric pain; R73.03 Prediabetes; R06.02 Shortness of breath; E66.01 Morbid (severe) obesity due to excess calories; I45.10 Unspecified right bundle-branch block; R01.1 Cardiac murmur, unspecified; K21.9 Gastro-esophageal reflux disease without esophagitis; Z68.41 Body mass index [BMI] 40.0-44.9, adult; Z87.891 Personal history of nicotine dependence; K57.30 Diverticulosis of large intestine without perforation or abscess without bleeding; N94.89 Other specified conditions associated with female genital organs and menstrual cycle; Z90.49 Acquired absence of other specified parts of digestive tract; Z90.10 Acquired absence of unspecified breast and nipple; R09.89 Other specified symptoms and signs involving the circulatory and respiratory systems; Z85.038 Personal history of other malignant neoplasm of large intestine; Z86.010 Personal history of colon polyps; Z90.11 Acquired absence of right breast and nipple; Z82.49 Family history of ischemic heart disease and other diseases of the circulatory system; J44.9 Chronic obstructive pulmonary disease, unspecified
CPT/HCPCS: 93005 ×3; 99285; 36415 ×2; 84439; 82553 ×2; 82550 ×2; 83690; 83735; 84443; 85025; 85027; 80048; 80053; 84484 ×2; 84481; 80061; 93017; 71046; 78452; 74177; 93010 ×2; G0378 ×4; A9500; J2785; A9270 ×7; J3490 ×2; J2270; C9113 ×2; Q9969; S0164

== ENCOUNTER 2019-04-06 22:31 | Emergency (ER) | payer MEDICARE ==
--- NOTE | 2019-04-06 23:36 | RADIOLOGY REPORT (SQ) ---
EXAM DESCRIPTION: XR CHEST 2 VIEWS COMPLETED DATE/TME: 04/06/2019 00:00 CLINICAL HISTORY: 64 years, Female, CP COMPARISON: Prior study from 10/28/2018 NUMBER OF VIEWS: Two TECHNIQUE: Frontal and lateral radiographs of the chest were obtained. LIMITATIONS: None. FINDINGS: Cardiac and mediastinal contours are stable. Bandlike opacities are noted about both lung bases, either indicating atelectasis or scar. Lungs are otherwise clear. No pleural effusion or pneumothorax. IMPRESSION: No acute disease. copyright 2010 [employer]- All Rights Reserved
[2019-04-07 00:53] LABS: ALBUMIN 3.9 g/dL (3.5-5.0); ALKALINE PHOSPHATASE 95 U/L (38-126); ANION GAP 6 (5-19); ASPARTATE AMINO TRANSFERASE 23 U/L (14-36); BILIRUBIN,DIRECT 0.2 mg/dL (0.0-0.4); BILIRUBIN,TOTAL 0.5 mg/dL (0.2-1.3); BLOOD UREA NITROGEN 31 mg/dL (7-20); CALCIUM 9.5 mg/dL (8.4-10.2); CARBON DIOXIDE 33 mmol/L (22-30); CHLORIDE 101 mmol/L (98-107); CREATINE KINASE 63 U/L (30-135); GLUCOSE 97 mg/dL (75-110); POTASSIUM 4.9 mmol/L (3.6-5.0); TOTAL PROTEIN 7.1 g/dL (6.3-8.2)
[2019-04-07 01:05] LABS: CREATINE KINASE MB 1.25 ng/mL (<4.55); TROPONIN I 0.016 ng/mL
[2019-04-07 01:25] LABS: ABSOLUTE BASOPHILS # (AUTO) 0.1 10^3/uL (0.0-0.2); ABSOLUTE EOSINOPHILS # (AUTO) 0.2 10^3/uL (0.0-0.6); ABSOLUTE LYMPHOCYTES (AUTO) 1.9 10^3/uL (0.5-4.7); ABSOLUTE MONOCYTES (AUTO) 0.6 10^3/uL (0.1-1.4); ABSOLUTE NEUT (AUTO) 4.7 10^3/uL (1.7-8.2); BASOPHILS % (AUTO) 0.8 % (0-2); EOSINOPHILS % (AUTO) 2.2 % (0-6); HEMATOCRIT 43.1 % (36.0-47.0); HEMOGLOBIN 14.4 g/dL (12.0-15.5); LYMPHOCYTES % (AUTO) 25.4 % (13-45); MEAN CORPUSCULAR HEMOGLOBIN 31.2 pg (27.0-33.4); MEAN CORPUSCULAR HGB CONC 33.5 g/dL (32.0-36.0); MEAN CORPUSCULAR VOLUME 93 fl (80-97); MONOCYTES % (AUTO) 7.9 % (3-13); PLATELET COUNT 164 10^3/uL (150-450); RED BLOOD COUNT 4.62 10^6/uL (3.72-5.28); RED CELL DISTRIBUTION WIDTH 14.3 % (11.5-14.0); SEGMENTED NEUTROPHILS % (AUTO) 63.7 % (42-78); TOTAL CELLS COUNTED % (AUTO) 100 %; WHITE BLOOD COUNT 7.4 10^3/uL (4.0-10.5)
[2019-04-07] MEDS ORDERED: MORPHINE SULFATE 10 MG/ML INJ IV ONE (01:50)
[2019-04-07] MEDS ORDERED: ONDANSETRON HCL INJ/PF 4 MG/2 ML SDV IV ONE (01:51)
--- NOTE | 2019-04-07 02:15 | ER Document Report ---
ED General - General Chief Complaint: Epigastric Pain Stated Complaint: CHEST PAIN Time Seen by Provider: 04/07/19 01:10 Primary Care Provider: JUANCARLOS SMITH MD [Primary Care Provider] - Follow up as needed TRAVEL OUTSIDE OF THE [place] IN LAST 30 DAYS: No - HPI Notes: Patient is a 64-year-old female who presents emergency department for evaluation of abdominal pain. She points to her right upper quadrant, states it radiates up into her epigastrium and occasionally in her chest. It started about 1:30 this afternoon, right after eating. This is not the first time she has had pain like this before. She is actually been seen in the past for it. She has had some nausea but no emesis. Normal bowel movements. She states her pain is worsened by movement as well as breathing. No fevers. Normal urination. No autumn colored stool. - Related Data Allergies/Adverse Reactions: aspirin [Aspirin] Allergy (Verified 10/28/18 17:30) epinephrine [Epinephrine] Allergy (Verified 10/28/18 17:30) ibuprofen [Ibuprofen] Allergy (Verified 10/28/18 17:30) Penicillins Allergy (Verified 10/28/18 21:39) Past Medical History - General Information source: Patient - Social History Smoking Status: Former Smoker Family History: CAD, COPD, DM, Hypertension - Past Medical History Cardiac Medical History: Reports: Hx Coronary Artery Disease - Scheduled for CABG in April Denies: Hx Congestive Heart Failure, Hx Heart Attack, Hx Hypertension Pulmonary Medical History: Reports: Hx Asthma, Hx Pneumonia Denies: Hx Bronchitis, Hx COPD, Hx Tuberculosis Neurological Medical History: Denies: Hx Seizures Endocrine Medical History: Reports: Hx Diabetes Mellitus Type 2 - Borderline. Denies: Hx Hyperthyroidism, Hx Hypothyroidism Renal/ Medical History: Denies: Hx End Stage Renal Disease, Hx Kidney Stones, Hx Peritoneal Dialysis Malignancy Medical History: Reports: Hx Breast Cancer, Hx Colorectal Cancer GI Medical History: Reports: Hx Gastroesophageal Reflux Disease. Denies: Hx Cirrhosis, Hx Crohn's Disease, Hx Hepatitis, Hx Ulcer, Hx Ulcerative Colitis Musculoskeletal Medical History: Reports Hx Arthritis, Denies Hx Gout, Denies Hx Multiple Sclerosis Skin Medical History: Denies Hx Eczema, Denies Hx Psoriasis Psychiatric Medical History: Reports: Hx Depression Denies: Hx Bipolar Disorder, Hx Schizophrenia Infectious Medical History: Denies: Hx Hepatitis Past Surgical History: Reports: Hx Abdominal Surgery - colonectomy, Hx Appendectomy, Hx Mastectomy - Right breast, Hx Orthopedic Surgery - R knee; R tib; R wrist; jaw - Immunizations Hx Diphtheria, Pertussis, Tetanus Vaccination: Yes Hx Pneumococcal Vaccination: 05/25/18 Review of Systems - Review of Systems Constitutional: No symptoms reported EENT: No symptoms reported Cardiovascular: See HPI Respiratory: No symptoms reported Gastrointestinal: See HPI Genitourinary: No symptoms reported Female Genitourinary: No symptoms reported Musculoskeletal: No symptoms reported Skin: No symptoms reported Neurological/Psychological: No symptoms reported Physical Exam - Vital signs Vitals: Temp Pulse Resp BP Pulse Ox 98.1 F 83 20 142/58 H 88 L 04/06/19 23:11 04/06/19 23:11 04/06/19 23:11 04/06/19 23:11 04/06/19 23:11 - Notes Notes: Vital signs reviewed, please refer to chart. Head is normocephalic, atraumatic. Pupils equal round, reactive to light. Neck is supple without meningismus. Heart is regular rate and rhythm. Lungs are clear to auscultation bilaterally. Abdomen is soft, mild epigastric tenderness with moderate right upper quadrant tenderness, no rebound or guarding, normoactive bowel sounds throughout. Extre mities without cyanosis, clubbing. Posterior calves are nontender. Peripheral pulses are equal. Skin is warm and dry. Patient is awake, alert, neurological exam is nonfocal. Course - Re-evaluation Re-evalutation: 04/07/19 02:15 Patient presented to the emergency department for evaluation. She listed her chief complaint is chest pain, but she points directly to her right upper quadrant for me. It seems to be exacerbated by eating. According to the patient as well as her , this is not a new pain for her. The patient is due for CABG, so certainly an elective surgery like a cholecystectomy would not be appropriate at this time. I did review her recent imaging, gallbladder has been found to be unremarkable. She needs a HIDA scan, but again unless emergent, I would not see an indication to remove this patient's gallbladder prior to her CABG scheduled in April. She is given pain medication. Her troponin came back 0.016, which is still well with a negative limits. Her pain is been present for several hours. Again I suspect strongly that this is biliary colic, or at the very least a gastric etiology. Awaiting lipase to make sure gallstone pancreatitis has been ruled out. Assuming normal, will dis charge the patient with nausea medicine, pain medication, close follow-up. She is return to the ED with worsening or new concerning symptoms of any sort. 04/07/19 03:29 Patient was found to be normal. I went back and evaluate the patient. Her abdominal exam remains tender but nonsurgical. She is resting comfortably. I will then send her home with nausea medication. She is to follow-up with [facility], return to the ED with worsening or new concerning symptoms of any sort. - Vital Signs Vital signs: Temp Pulse Resp BP Pulse Ox 98.1 F 83 20 142/58 H 88 L 04/06/19 23:11 04/06/19 23:11 04/06/19 23:11 04/06/19 23:11 04/06/19 23:11 - Laboratory Result Diagrams: 04/07/19 01:10 04/07/19 00:07 Laboratory results interpreted by me: 04/07/19 04/07/19 00:07 01:10 RDW 14.3 H Carbon Dioxide 33 H BUN 31 H - Diagnostic Test Radiology reviewed: Reports reviewed Radiology results interpreted by me: 04/07/19 02:16 Chest X-Ray 04/06/19 00:00 IMPRESSION: No acute disease. copyright 2011 [employer]- All Rights Reserved - EKG Interpretation by Me Additional EKG results interpreted by me: 04/07/19 02:16 Sinus mechanism with a rate of 83 bpm. Normal axis. Right bundle branch block. No significant ST changes concerning for acute infarction. Discharge - Discharge Clinical Impression: Epigastric pain, Right upper quadrant pain Condition: Stable Disposition: HOME, SELF-CARE Instructions: Abdominal Pain ([facility]) Additional Instructions: I suspect that your gallbladder is the cause of your pain. Avoid fatty and greasy foods. Follow-up with your primary care provider next week. Return to the emergency department with worsening or new concerning symptoms of any sort. Referrals: JUANCARLOS SMITH MD [Primary Care Provider] - Follow up as needed
[2019-04-07 04:07] VITALS: BP 149/62
--- NOTE | 2019-04-07 14:52 | EKG REPORT ---
SEVERITY:- ABNORMAL ECG - SINUS RHYTHM BIATRIAL ABNORMALITIES RIGHT BUNDLE BRANCH BLOCK : Confirmed by: Homero Paz 07-Apr-2019 14:50:51
== END 2019-04-07 04:07 | disposition home or self-care (01) ==
LOC: ER 22:31
DX: R10.13 Epigastric pain (principal); R10.11 Right upper quadrant pain; R10.816 Epigastric abdominal tenderness; R10.811 Right upper quadrant abdominal tenderness; R07.9 Chest pain, unspecified; R11.0 Nausea; I25.10 Atherosclerotic heart disease of native coronary artery without angina pectoris; I45.10 Unspecified right bundle-branch block; J45.909 Unspecified asthma, uncomplicated; Z88.8 Allergy status to other drugs, medicaments and biological substances; Z88.0 Allergy status to penicillin; Z87.891 Personal history of nicotine dependence; Z85.3 Personal history of malignant neoplasm of breast; Z85.048 Personal history of other malignant neoplasm of rectum, rectosigmoid junction, and anus; Z87.19 Personal history of other diseases of the digestive system; Z90.49 Acquired absence of other specified parts of digestive tract; Z82.49 Family history of ischemic heart disease and other diseases of the circulatory system
CPT/HCPCS: 93005; 99284; 96374; 96375; 36415; 82553; 82550; 83690; 85025; 80053; 84484; 71046; 93010; J2270; J2405

== ENCOUNTER 2019-10-18 19:53 | Emergency (ER) | payer MEDICARE ==
[2019-10-18 20:28] LABS: ABSOLUTE BASOPHILS # (AUTO) 0.1 10^3/uL (0.0-0.2); ABSOLUTE EOSINOPHILS # (AUTO) 0.2 10^3/uL (0.0-0.6); ABSOLUTE LYMPHOCYTES (AUTO) 1.8 10^3/uL (0.5-4.7); ABSOLUTE MONOCYTES (AUTO) 0.7 10^3/uL (0.1-1.4); ABSOLUTE NEUT (AUTO) 4.4 10^3/uL (1.7-8.2); BASOPHILS % (AUTO) 0.9 % (0-2); EOSINOPHILS % (AUTO) 2.2 % (0-6); HEMATOCRIT 43.1 % (36.0-47.0); HEMOGLOBIN 14.5 g/dL (12.0-15.5); LYMPHOCYTES % (AUTO) 25.2 % (13-45); MEAN CORPUSCULAR HEMOGLOBIN 31.3 pg (27.0-33.4); MEAN CORPUSCULAR HGB CONC 33.6 g/dL (32.0-36.0); MEAN CORPUSCULAR VOLUME 93 fl (80-97); MONOCYTES % (AUTO) 9.5 % (3-13); PLATELET COUNT 159 10^3/uL (150-450); RED BLOOD COUNT 4.63 10^6/uL (3.72-5.28); RED CELL DISTRIBUTION WIDTH 15.5 % (11.5-14.0); SEGMENTED NEUTROPHILS % (AUTO) 62.2 % (42-78); TOTAL CELLS COUNTED % (AUTO) 100 %; WHITE BLOOD COUNT 7.1 10^3/uL (4.0-10.5)
--- NOTE | 2019-10-18 20:43 | ER Document Report ---
ED Respiratory Problem - General Chief Complaint: Asthma Exacerbation Stated Complaint: SHORTNESS OF BREATH Time Seen by Provider: 10/18/19 20:32 Primary Care Provider: JUANCARLOS SMITH MD [Primary Care Provider] - Follow up as needed Notes: Patient is a 64-year-old female that comes to the emergency department for chief complaint of shortness of breath. She said she has had worsening cough for the past 2 to 3 days, however while she was shopping this evening she became very short of breath with wheezing, she comes by EMS, she received a DuoNeb and Zofran and she states now she feels much improved. She denies chest pain, fever, abdominal pain, passing out. Past medical history of asthma, quit smoking over 10 years ago, she is not on home oxygen. She states she has had a aortic valve porcine replacement, CABG, and ever since that time her oxygen saturation is 91-93 normally. She is not on blood thinner. Remaining medical history includes previous breast and colon cancer but she is not on chemotherapy or radiation. All her providers are in [place] including cardiology. TRAVEL OUTSIDE OF THE [place] IN LAST 30 DAYS: No - Related Data Allergies/Adverse Reactions: aspirin [Aspirin] Allergy (Verified 10/28/18 17:30) epinephrine [Epinephrine] Allergy (Verified 10/28/18 17:30) ibuprofen [Ibuprofen] Allergy (Verified 10/28/18 17:30) Penicillins Allergy (Verified 10/28/18 21:39) Past Medical History - General Information source: Patient - Social History Smoking Status: Former Smoker Frequency of alcohol use: None Drug Abuse: None Lives with: Family Family History: CAD, COPD, DM, Hypertension Patient has suicidal ideation: No Patient has homicidal ideation: No - Past Medical History Cardiac Medical History: Reports: Hx Coronary Artery Disease - Scheduled for CABG in April Denies: Hx Congestive Heart Failure, Hx Heart Attack, Hx Hypertension Pulmonary Medical History: Reports: Hx Asthma, Hx Pneumonia Denies: Hx Bronchitis, Hx COPD, Hx Tuberculosis Neurological Medical History: Denies: Hx Seizures, Hx Parkinson's Disease Endocrine Medical History: Reports: Hx Diabetes Mellitus Type 2 - Borderline. Denies: Hx Hyperthyroidism, Hx Hypothyroidism Renal/ Medical History: Denies: Hx End Stage Renal Disease, Hx Kidney Stones, Hx Peritoneal Dialysis Malignancy Medical History: Reports: Hx Breast Cancer, Hx Colorectal Cancer GI Medical History: Reports: Hx Gastroesophageal Reflux Disease. Denies: Hx Cirrhosis, Hx Crohn's Disease, Hx Hepatitis, Hx Ulcer, Hx Ulcerative Colitis Musculoskeletal Medical History: Reports Hx Arthritis, Denies Hx Gout, Denies Hx Multiple Sclerosis Skin Medical History: Denies Hx Eczema, Denies Hx Psoriasis Psychiatric Medical History: Reports: Hx Depression Denies: Hx Bipolar Disorder, Hx Schizophrenia Infectious Medical History: Denies: Hx Hepatitis Past Surgical History: Reports: Hx Abdominal Surgery - colonectomy, Hx Appendectomy, Hx Mastectomy - Right breast, Hx Orthopedic Surgery - R knee; R tib; R wrist; jaw - Immunizations Hx Diphtheria, Pertussis, Tetanus Vaccination: Yes Hx Pneumococcal Vaccination: 05/25/18 Review of Systems - Review of Systems Constitutional: No symptoms reported EENT: No symptoms reported Cardiovascular: No symptoms reported Respiratory: No symptoms reported Gastrointestinal: See HPI Genitourinary: No symptoms reported Female Genitourinary: No symptoms reported Musculoskeletal: No symptoms reported Skin: No symptoms reported Hematologic/Lymphatic: No symptoms reported Neurological/Psychological: No symptoms reported Physical Exam - Vital signs Vitals: Temp Pulse Resp BP Pulse Ox 98.0 F 87 13 128/65 H 90 L 10/18/19 20:04 10/18/19 20:04 10/18/19 20:04 10/18/19 20:04 10/18/19 20:04 - Notes Notes: GENERAL: Alert, interacts well. No acute distress. HEAD: Normocephalic, atraumatic. EYES: Pupils equal, round, and reactive to light. Extraocular movements intact. ENT: Oral mucosa moist, tongue midline. Oropharynx unremarkable. Airway patent. NECK: Full range of motion. Supple. Trachea midline. LUNGS: Clear to auscultation bilaterally, no wheezes, rales, or rhonchi. No respiratory distress. HEART: Regular rate and rhythm. Murmur noted ABDOMEN: Soft, non-tender. Non-distended. EXTREMITIES: Moves all 4 extremities spontaneously. No edema, normal radial and dorsalis pedis pulses bilaterally. No cyanosis. BACK: no cervical, thoracic, lumbar midline tenderness. No saddle anesthesia, normal distal neurovascular exam. Moves all extremities in full range of motion. NEUROLOGICAL: Alert and oriented x3. Normal speech. Cranial nerves II through XII grossly intact. PSYCH: Normal affect, normal mood. SKIN: Warm, dry, normal turgor. No rashes or lesions noted. Course - Re-evaluation Re-evalutation: EKG discussed with Dr. Chirinos, shows bundle branch block components but no T wave inversions or significant change in consecutive leads, no concerning ischemic findings. Chest x-ray is normal. CBC, chemistry, troponin unremarkable. BNP is borderline. Patient completely asymptomatic after steroids and DuoNeb treatment. Lungs clear on my exam. Patient is requesting to go home. She states she has steroids at home that she has not filled yet that she can fill and take, she also has inhalers. I do feel this is an asthma exacerbation based on her acute onset wheezing without any sick symptoms or reported cardiac symptoms. Patient ambulated without any hypoxia or difficulty breathing. I discussed with Dr. chirinos. He feels patient can be safely discharged with follow-up and return precautions. Discussed this in detail with patient and family, they state appreciation and agreement. Stable at time of discharge. - Vital Signs Vital signs: Temp Pulse Resp BP Pulse Ox 98.1 F 87 12 111/55 L 95 10/18/19 22:17 10/18/19 20:04 10/18/19 22:17 10/18/19 22:17 10/18/19 22:17 - Laboratory Result Diagrams: 10/18/19 20:10 10/18/19 20:10 Laboratory results interpreted by me: 10/18/19 10/18/19 10/18/19 20:10 20:10 20:10 RDW 15.5 H Carbon Dioxide 35 H BUN 40 H Creatinine 1.45 H Est GFR ( Amer) 44 L Est GFR (MDRD) Non-Af 36 L Glucose 118 H NT-Pro-B Natriuret Pep 270 H Ur Leukocyte Esterase 10/18/19 21:35 RDW Carbon Dioxide BUN Creatinine Est GFR ( Amer) Est GFR (MDRD) Non-Af Glucose NT-Pro-B Natriuret Pep Ur Leukocyte Esterase MODERATE H Discharge - Discharge Clinical Impression: Shortness of breath, Wheezing, Cough Asthma exacerbation Qualifiers: Asthma severity: unspecified severity Asthma persistence: unspecified Qualified Code(s): J45.901 - Unspecified asthma with (acute) exacerbation Condition: Stable Disposition: HOME, SELF-CARE Additional Instructions: Your evaluation and work-up are reassuring, this appears to be an asthma exacerbation. I recommend that you fill and take your prednisone, use the albuterol inhaler with spacer every 4-6 hours as needed. Follow-up close with your primary care provider. Come back if you worsen including spiking fever, difficulty breathing, passing out, chest pain, or any other concerning symptoms. Referrals: JUANCARLOS SMITH MD [Primary Care Provider] - Follow up as needed
[2019-10-18 20:52] LABS: ALBUMIN 4.1 g/dL (3.5-5.0); ALKALINE PHOSPHATASE 96 U/L (38-126); ANION GAP 7 (5-19); ASPARTATE AMINO TRANSFERASE 27 U/L (14-36); BILIRUBIN,TOTAL 0.4 mg/dL (0.2-1.3); BLOOD UREA NITROGEN 40 mg/dL (7-20); CALCIUM 9.7 mg/dL (8.4-10.2); CARBON DIOXIDE 35 mmol/L (22-30); CHLORIDE 100 mmol/L (98-107); CREATINE KINASE 51 U/L (30-135); GLUCOSE 118 mg/dL (75-110); POTASSIUM 4.5 mmol/L (3.6-5.0); TOTAL PROTEIN 7.4 g/dL (6.3-8.2)
[2019-10-18 21:02] LABS: CREATINE KINASE MB 1.61 ng/mL (<4.55); NT PRO BNP 270 pg/mL (<125)
[2019-10-18 21:03] LABS: TROPONIN I < 0.012 ng/mL
--- NOTE | 2019-10-18 21:09 | RADIOLOGY REPORT (SQ) ---
EXAM DESCRIPTION: XR CHEST 1 VIEW COMPLETED DATE/TME: 10/18/2019 20:09 CLINICAL HISTORY: 64 years, Female, SOB COMPARISON: Prior study from 04/06/2019 NUMBER OF VIEWS: One TECHNIQUE: Single frontal view of the chest was obtained portably LIMITATIONS: None. FINDINGS: Status post median sternotomy. Cardiac and mediastinal contours are stable in appearance. Lungs are clear. No pleural effusion or pneumothorax. IMPRESSION: No acute disease. copyright 2010 [employer]- All Rights Reserved
[2019-10-18 21:56] LABS: APPEARANCE,URINE SLIGHTLY-CLOUDY; BILIRUBIN,URINE NEGATIVE (NEGATIVE); COLOR,URINE YELLOW; GLUCOSE, URINE NEGATIVE (NEGATIVE); KETONES,URINE NEGATIVE (NEGATIVE); LEUKOCYTE ESTERASE,URINE MODERATE (NEGATIVE); NITRITE,URINE NEGATIVE (NEGATIVE); PROTEIN,URINE NEGATIVE (NEGATIVE); URINE SPECIFIC GRAVITY 1.023; UROBILINOGEN,URINE NEGATIVE mg/dL (<2.0)
--- NOTE | 2019-10-18 22:00 | EKG REPORT ---
SEVERITY:- ABNORMAL ECG - SINUS RHYTHM LEFT ATRIAL ABNORMALITY RIGHT BUNDLE BRANCH BLOCK LVH WITH IVCD AND SECONDARY REPOL ABNRM : Confirmed by: Shelley Barnes MD 18-Oct-2019 22:00:07
[2019-10-18 22:25] VITALS: BP 111/55
== END 2019-10-18 22:24 | disposition home or self-care (01) ==
LOC: ER 19:53
DX: J45.901 Unspecified asthma with (acute) exacerbation (principal); Z88.6 Allergy status to analgesic agent; Z88.0 Allergy status to penicillin; Z95.3 Presence of xenogenic heart valve; Z95.1 Presence of aortocoronary bypass graft; Z85.3 Personal history of malignant neoplasm of breast; Z85.038 Personal history of other malignant neoplasm of large intestine
CPT/HCPCS: 36415; 71045; 80053; 81001; 82550; 82553; 83880; 84484; 85025; 87086; 93005; 93010; 99285